=== PATIENT | male | born 1970 | race Caucasian/White ===

== ENCOUNTER 2021-08-29 17:53 | Emergency (ER) | payer OTHER, SELFPAY ==
--- NOTE | ~2021-08-29 | XR_ITS ---
EXAMINATION: XR CHEST CLINICAL INFORMATION: Cough COMPARISON: None TECHNIQUE: Frontal view of the chest was obtained. FINDINGS: Multiple subtle groundglass infiltrates may be present. No other abnormality is seen. Heart size normal. No consolidations. No pleural effusions.. XR/XR chest 1V IMPRESSION: Question of multifocal very subtle groundglass infiltrates
[2021-08-29 19:35] VITALS: BP 111/71; PULSE 84; RESP 18; TEMP 37.1; O2SAT 100; BMI 25.7
[2021-08-29 22:52] LABS: COVID-19 Test Negative (Negative)
[2021-08-29 23:41] VITALS: BP 116/90; PULSE 88; RESP 16; TEMP 37.1; O2SAT 99
--- NOTE | 2021-08-30 00:04 | ED.GENADULT ---
HPI - General Adult General Chief complaint: Upper Respiratory Symptoms Stated complaint: sob x 4 days cough Time Seen by Provider: 08/29/21 22:58 History of Present Illness HPI narrative: Patient complains of cough body aches and fatigue for 3 days, no shortness of breath no vomiting Related Data Previous Rx's Medication Instructions Recorded azithromycin 250 mg tablet See Rx Instructions .ROUTE 08/30/21 (Zithromax) .COMPLEX #6 tab oxycodone 5 mg tablet 5 mg PO Q6H PRN #10 tab 08/30/21 Allergies Allergy/AdvReac Type Severity Reaction Status Date / Time Penicillins [PENICILLINS] Allergy Severe ANAPHYLAXIS Verified 08/29/21 19:34 Review of Systems Review of Systems: Positive cough body aches and fatigue Negatives are no fever no chills no dizziness or weakness no fainting no feeling faint no headache no neck pain no chest pain no shortness of breath no abdominal pain no nausea vomiting or diarrhea Yes all other systems are reviewed and are negative PMFSH Past Medical History Source: nursing notes reviewed Medical History (Updated 08/30/21 @ 00:13 by GERMANIA Carter) No pertinent past medical history Social History Social History Advance Directives: No Advance Directives Information Provided: Yes Physical Exam Vital Signs: Vital Signs: Last Vital Signs Temp 98.8 F 08/29/21 23:41 Pulse 88 08/29/21 23:41 Resp 16 08/29/21 23:41 BP 116/90 H 08/29/21 23:41 Pulse Ox 99 08/29/21 23:41 BMI result Body Mass Index 25.7 General appearance no acute distress The eyes no discharge no redness The neck is supple Chest clear to auscultation bilateral Heart no murmur Abdomen soft nontender Extremities full range of motion x4 Course Course Course Narrative: COVID test was negative but x-ray showed ground glass opacities so informed patient he likely has COVID and for the possibility which is small that he has a bacterial pneumonia given a script for Zithromax He was well-appearing and comfortable and discharged Medical Decision Making Lab Data Labs: Lab Results 08/29/21 Range/Units 22:21 COVID-19 ([facility]) Negative (Negative) COVID-19 Clin Com See Note Discharge Plan Discharge Clinical Impression: COVID-19 Patient Disposition: Home, Self-Care Additional Instructions: X-ray had findings that are very consistent with COVID, but your COVID test was negative COVID testing misses many cases so I am very sure that you have COVID now so you will need to quarantine for 7 days Return to the ER any time for difficulty breathing, any worse condition or any concerns There is a slight chance it is from a bacterial pneumonia so we wrote an antibiotic Prescriptions: New azithromycin [Zithromax] 250 mg tablet See Rx Instructions .ROUTE .COMPLEX Qty: 6 RF: 0 oxycodone 5 mg tablet 5 mg PO Q6H PRN (Reason: pain) Qty: 10 RF: 0 Interventions: ED Discharge Assessment Last Done: 08/30/21 00:28 Discharge Date/Time: 08/30/21 00:30
== END 2021-08-30 00:30 | disposition home or self-care (01) ==
PROVIDERS: Emergency Provider Emergency Medicine Emergency Medical Services; PCP Internal Medicine
DX: U07.1 COVID-19 (principal)
CPT/HCPCS: 36415; 71045; 87635; 99283; 99284

== ENCOUNTER 2022-03-28 21:02 | Emergency (ER) | payer OTHER, SELFPAY ==
[2022-03-28 22:22] VITALS: BP 129/93; PULSE 97; RESP 18; TEMP 37.2; O2SAT 99; BMI 24.4
--- NOTE | 2022-03-29 06:49 | ED_ITS ---
HPI - Allergic Reaction General Chief complaint: Allergic Reaction Stated complaint: Rash Time Seen by Provider: 03/29/22 06:49 Source: patient Mode of arrival: ambulatory History of Present Illness HPI narrative: 51-year-old male no significant past medical history presents for pain at bilateral armpits after he used a deodorant and had a significant reaction. There is redness and itching the area without evidence infection and he denies any fevers or chills. He otherwise denies any facial swelling/tongue swelling/difficulty breathing or swallowing. Related Data Previous Rx's Medication Instructions Recorded azithromycin 250 mg tablet See Rx Instructions PO .COMPLEX #6 08/30/21 (Zithromax) tabs oxycodone 5 mg tablet 5 mg PO Q6H PRN pain #10 tabs 08/30/21 Allergies Allergy/AdvReac Type Severity Reaction Status Date / Time Penicillins [PENICILLINS] Allergy Severe ANAPHYLAXIS Verified 03/28/22 22:21 Review of Systems Review of Systems: Pertinent positives and negatives as stated in HPI 10 point review of systems otherwise negative. [facility] Past Medical History Source: nursing notes reviewed Medical History No pertinent past medical history Social History Social History Advance Directives: No Advance Directives Information Provided: Yes Physical Exam ED Vital Signs: Vital Signs - 24 hr 03/28/22 22:22 Temperature 98.9 F Pulse Rate 97 Respiratory Rate 18 Blood Pressure 129/93 H Pulse Oximetry 99 Oxygen Delivery Method Room Air BMI result Body Mass Index 24.4 VITAL SIGNS: Reviewed. GENERAL: Well developed, well nourished, in no acute distress. HEAD: Normocephalic/atraumatic EYES: PERRLA, EOMI EARS: Ext canals without abnormality OROPHARYNX: no oral lesions noted, posterior pharynx clear LUNGS: Normal breath sounds. No adventitious sounds or accessory muscle use. SpO2<99> CARDIOVASCULAR: Regular rate and rhythm without noted murmurs ABDOMEN: Soft, non-tender, non-distended with bowel sounds. MUSCULOSKELETAL: No tenderness, deformities, or effusions noted on gross inspection. EXTREMITIES: No cyanosis, clubbing or edema; bilateral axilla with significant that erythema with mild weeping consistent with contact dermatitis and likely deodorant reaction. SKIN: Inspection of the skin reveals as described above NEUROLOGIC: Alert and oriented x 4. Strength and sensation to light touch were grossly intact x 4. Course Course Course Narrative: 51-year-old male with history and clinical presentation consistent with contact dermatitis with significant reaction in bilateral axilla to suspected deodorant that patient has stopped using. Patient states he has cleanse the area he was directed to use Benadryl there is no evidence of angioedema or anaphylaxis. Patient is otherwise discharged home in stable condition. Discharge Plan Discharge Clinical Impression: Allergic reaction, Contact dermatitis Patient Disposition: Home, Self-Care Instructions: Contact Dermatitis (ED), General Allergic Reaction (ED) Additional Instructions: 1. Recommend [id number] Benadryl, 25-50 mg, every 8 hours as needed to help reduce the swelling and itching. Do not use this medication while driving. 2. Recommend application Vaseline, available [id number], to both of your armpits after gentle cleansing with water and soap. 3. Follow-up with your primary care provider in the next 1-2 days for re- evaluation. Return to the ER for worsening symptoms. Prescriptions: No Action azithromycin [Zithromax] 250 mg tablet See Rx Instructions .ROUTE .COMPLEX Qty: 6 0RF Rx Instructions: For 250 mg dose pack: take 500 mg today (day 1), then 250 mg for 4 days (days 2-5) oxycodone 5 mg tablet 5 mg PO Q6H PRN (Reason: pain) Qty: 10 0RF Interventions: ED Discharge Assessment Last Done: 03/29/22 07:03 Discharge Date/Time: 03/29/22 07:03
[2022-03-29] MEDS: Ketorolac Tromethamine 15 MG/ML VIAL IM (06:59)
[2022-03-29] MEDS: Acetaminophen 325 MG TABLET 975 MG PO (06:59)
[2022-03-29] MEDS: diphenhydrAMINE HCL 25 MG TABLET PO (06:59)
== END 2022-03-29 07:03 | disposition home or self-care (01) ==
PROVIDERS: Emergency Provider Student in an Organized Health Care Education/Training Program
DX: L23.9 Allergic contact dermatitis, unspecified cause (principal); R21 Rash and other nonspecific skin eruption; Z79.899 Other long term (current) drug therapy
CPT/HCPCS: 96372; 99282; 99283; 99284; J1885; Q0163